=== PATIENT | female | born 1990 | race African-American/Black ===

== ENCOUNTER 2018-08-03 09:03 | Emergency (ER) | payer MEDICAID, OTHER ==
[~2018-08-03] VITALS: Ht 165.1 cm; Wt 80.9 kg
[~2018-08-03 09:03] MED LIST: PROM25TA7 PO; VICOT PO
[2018-08-03] MEDS ORDERED: CARBAMIDE PEROXIDE 6.5% 15 ML OTIC SOLUTION AD ONE (09:45)
[2018-08-03 12:20] VITALS: BP 122/68
== END 2018-08-03 12:27 | disposition home or self-care (01) ==
LOC: EMS 09:05
DX: H61.21 Impacted cerumen, right ear (principal); H66.91 Otitis media, unspecified, right ear; F17.210 Nicotine dependence, cigarettes, uncomplicated
CPT/HCPCS: 69209; 99406

== ENCOUNTER 2020-01-02 09:39 | Emergency (ER) | payer MEDICAID ==
[~2020-01-02] VITALS: Ht 167.6 cm; Wt 79.5 kg
[2020-01-02] MEDS ORDERED: LIDOCAINE 1%/EPI 1:200,000/PF 10 ML VIAL INJ ONE (10:15)
[2020-01-02] MEDS ORDERED: ACETAMINOPHEN 325 MG TABLET PO ONE (10:15)
[2020-01-02 10:49] VITALS: BP 121/78
== END 2020-01-02 10:59 | disposition home or self-care (01) ==
LOC: EMS 09:42
DX: L02.412 Cutaneous abscess of left axilla (principal); F17.210 Nicotine dependence, cigarettes, uncomplicated
CPT/HCPCS: 10060; 99283; J3490

== ENCOUNTER 2020-01-04 13:14 | Emergency (ER) | payer MEDICAID ==
[~2020-01-04] VITALS: Ht 167.6 cm; Wt 83.6 kg
[2020-01-04] MEDS ORDERED: BACTDSB PO (13:20)
[2020-01-04 14:01] VITALS: BP 116/62
== END 2020-01-04 14:37 | disposition home or self-care (01) ==
LOC: EMS 13:14
DX: L02.412 Cutaneous abscess of left axilla (principal); F17.210 Nicotine dependence, cigarettes, uncomplicated
CPT/HCPCS: 99406; Z7502

== ENCOUNTER 2020-09-07 08:29 | Emergency (ER) | payer MEDICAID ==
[~2020-09-07] VITALS: Ht 167.6 cm; Wt 72.7 kg
[~2020-09-07 08:29] MED LIST changes: +BACTDSB PO; -PROM25TA7 PO; -VICOT PO
[2020-09-07] MEDS ORDERED: LIDOCAINE 5% TRANSDERMAL PATCH TD ONE (09:15)
[2020-09-07] MEDS ORDERED: IBUPROFEN 600 MG TABLET PO ONE (09:15)
[2020-09-07 09:54] VITALS: BP 118/81
== END 2020-09-07 10:01 | disposition home or self-care (01) ==
LOC: EMS 08:32
DX: S39.012A Strain of muscle, fascia and tendon of lower back, initial encounter (principal); V49.49XA Driver injured in collision with other motor vehicles in traffic accident, initial encounter; Y93.89 Activity, other specified; Y92.488 Other paved roadways as the place of occurrence of the external cause; Y99.8 Other external cause status
CPT/HCPCS: 99283

== ENCOUNTER 2020-09-17 21:35 | Emergency (ER) | payer MEDICAID ==
[~2020-09-17] VITALS: Ht 167.6 cm; Wt 73.6 kg
[2020-09-17] MEDS ORDERED: ACETAMINOPHEN 500 MG TABLET PO ONE (22:45)
[2020-09-17 23:56] VITALS: BP 117/74
== END 2020-09-18 00:29 | disposition home or self-care (01) ==
LOC: EMS 21:37
DX: S90.222A Contusion of left lesser toe(s) with damage to nail, initial encounter (principal); W22.8XXA Striking against or struck by other objects, initial encounter; Y93.89 Activity, other specified; Y92.89 Other specified places as the place of occurrence of the external cause; Y99.8 Other external cause status
CPT/HCPCS: 99283